=== PATIENT | male | born 1970 | race Caucasian/White ===

== ENCOUNTER 2024-03-09 15:52 | Emergency (ER) | payer BC ==
[~2024-03-09] VITALS: Ht 175.3 cm; Wt 123.8 kg
[2024-03-09 16:21] VITALS: BP 151/92; PULSE 94; RESP 16; TEMP 99.9; O2SAT 98
[2024-03-09] MEDS: fluconazole 150mg tablet PO STA (18:52)
[2024-03-09] MEDS ORDERED: FLUC40SU OT (19:01)
[2024-03-09] MEDS ORDERED: DIF150T PO (19:03)
== END 2024-03-09 20:11 | disposition home or self-care (01) ==
LOC: ER 15:54
DX: H60.392 Other infective otitis externa, left ear (principal)
CPT/HCPCS: 99283